=== PATIENT | female | born 1975 | race Caucasian/White ===

== ENCOUNTER 2017-02-25 15:03 | Emergency (ER) | payer OTHER | END 2017-02-25 16:26 | disposition home or self-care (01) | LOC: ER 15:03 | DX: J02.9 Acute pharyngitis, unspecified (principal); R51 Headache; I51.9 Heart disease, unspecified; R00.0 Tachycardia, unspecified; Z90.49 Acquired absence of other specified parts of digestive tract; Z79.899 Other long term (current) drug therapy | CPT/HCPCS: 87070; 87880; 99282 ==

== ENCOUNTER 2017-03-19 19:42 | Emergency (ER) | payer OTHER ==
[2017-03-19 20:27] LABS: BASO % 0.3 % (0.1-1.2); EOS # 0.1 10_X3_uL (0.0-0.4); EOS % 1.3 % (0.7-5.8); GRAN # 4.5 10_X3_uL (1.6-6.1); GRAN % 65.2 % (34.0-71.1); HEMATOCRIT 42.6 % (34-45); HEMOGLOBIN 14.5 g/dL (11.2-15.7); LYMPH # 1.6 10_X3_uL (1.2-3.7); LYMPH % 22.8 % (19.3-51.7); MEAN CORPUSCULAR HEMOGLOBIN 30.3 pg (27.0-33.0); MEAN CORPUSCULAR VOLUME 88.9 fL (79-95); MEAN PLATELET VOLUME 10.1 fl (7.5-11.5); MONO # 0.7 10_X3_uL (0.2-0.9); MONO % 10.4 % (4.7-12.5); PLATELET COUNT 238 x10_3/uL (182-369); RED BLOOD COUNT 4.79 x10_6/uL (3.9-5.2); RED CELL DISTRIBUTION WIDTH 12.2 % (11.7-14.4); WHITE BLOOD COUNT 6.9 x10_3/uL (4.0-10.0)
[2017-03-19 20:46] LABS: ALBUMIN 4.2 gm/dL (3.4-5.0); ALKALINE PHOSPHATASE 64 U/L (50-136); ALT/SGPT 29 U/L (3.5-33.9); AST/SGOT 26 U/L (7.04-26.96); BILIRUBIN,TOTAL 0.42 mg/dL (0.0-1.0); BLOOD UREA NITROGEN 7 mg/dL (7-18); CALCIUM 8.5 mg/dL (8.7-10.7); CARBON DIOXIDE 23 mmol/L (21-32); CREATININE 0.6 mg/dL (0.6-1.3); GLUCOSE,RANDOM 82 mg/dL (70-99); POTASSIUM 3.5 mmol/L (3.5-5.1); SODIUM 138 mmol/L (136-145); TOTAL PROTEIN 7.3 gm/dL (6.4-8.2)
== END 2017-03-19 23:16 | disposition home or self-care (01) ==
LOC: ER 19:42
PROVIDERS: Emergency Medicine
DX: R19.7 Diarrhea, unspecified (principal); R11.2 Nausea with vomiting, unspecified; J44.9 Chronic obstructive pulmonary disease, unspecified; J45.909 Unspecified asthma, uncomplicated; R53.1 Weakness; G89.29 Other chronic pain; M54.9 Dorsalgia, unspecified; Z79.899 Other long term (current) drug therapy
CPT/HCPCS: 36415; 80053; 85025; 87045; 87324; 96361; 96374; 96375; 99070; 99284-25

== ENCOUNTER 2017-05-03 12:30 | Emergency (ER) | payer OTHER ==
[2017-05-03 13:25] LABS: BASO % 0.4 % (0.1-1.2); EOS # 0.1 10_X3_uL (0.0-0.4); EOS % 1.1 % (0.7-5.8); GRAN # 5.3 10_X3_uL (1.6-6.1); GRAN % 63.7 % (34.0-71.1); HEMATOCRIT 38.2 % (34-45); HEMOGLOBIN 12.8 g/dL (11.2-15.7); LYMPH % 24.5 % (19.3-51.7); MEAN CORPUSCULAR HEMOGLOBIN 30.3 pg (27.0-33.0); MEAN CORPUSCULAR HGB CONC 33.5 g/dL (32.0-36.0); MEAN CORPUSCULAR VOLUME 90.5 fL (79-95); MEAN PLATELET VOLUME 10.4 fl (7.5-11.5); MONO # 0.9 10_X3_uL (0.2-0.9); MONO % 10.3 % (4.7-12.5); PLATELET COUNT 232 x10_3/uL (182-369); RED BLOOD COUNT 4.22 x10_6/uL (3.9-5.2); RED CELL DISTRIBUTION WIDTH 12.3 % (11.7-14.4); WHITE BLOOD COUNT 8.3 x10_3/uL (4.0-10.0)
[2017-05-03 13:41] LABS: ALBUMIN 4.1 gm/dL (3.4-5.0); ALKALINE PHOSPHATASE 61 U/L (50-136); ALT/SGPT 27 U/L (3.5-33.9); AST/SGOT 22 U/L (7.04-26.96); BILIRUBIN,TOTAL 0.52 mg/dL (0.0-1.0); BLOOD UREA NITROGEN 10 mg/dL (7-18); CALCIUM 8.9 mg/dL (8.7-10.7); CARBON DIOXIDE 24 mmol/L (21-32); CREATININE 0.7 mg/dL (0.6-1.3); GLUCOSE,RANDOM 94 mg/dL (70-99); LIPASE 29 U/L (6.75-60.75); POTASSIUM 4.8 mmol/L (3.5-5.1); SODIUM 136 mmol/L (136-145); TOTAL PROTEIN 7.1 gm/dL (6.4-8.2)
== END 2017-05-03 16:00 | disposition home or self-care (01) ==
LOC: ER 12:30
PROVIDERS: General Practice
DX: K76.0 Fatty (change of) liver, not elsewhere classified (principal); N28.1 Cyst of kidney, acquired; R10.13 Epigastric pain; R10.11 Right upper quadrant pain; E66.9 Obesity, unspecified; I10 Essential (primary) hypertension; J45.909 Unspecified asthma, uncomplicated; Z79.899 Other long term (current) drug therapy
CPT/HCPCS: 36415; 80053; 81025; 83690; 85025; 96374; 99070; 99284-25; J7040; Q9967